=== PATIENT | female | born 1985 | race American Indian/Alaskan Native ===

== ENCOUNTER 2020-07-07 21:44 | Emergency (ER) | payer OTHER, MEDICAID, SELFPAY ==
[2020-07-07 21:52] VITALS: BP 140/92; PULSE 110; RESP 23; TEMP 36.8; O2SAT 100; BMI 19.5
[2020-07-07 22:13] LABS: Add Manual Diff / Slide Review NO; Basophils Absolute Auto 0 /uL (0-100); Basophils Percent Auto 0.6 % (0-2); Eosinophils Absolute Auto 300 /uL (0-450); Eosinophils Percent Auto 4.3 % (2-4); Hematocrit 36.7 % (36-46); Hemoglobin 12.5 g/dL (12.0-16.0); Lymphocytes Absolute Auto 1600 /uL (1100-4500); Lymphocytes Percent Auto 22.5 % (25-40); Mean Corpuscular Hemoglobin 28.7 PG (26-34); Mean Corpuscular Volume 84.6 fL (80-100); Monocytes Absolute Auto 500 /uL (0-900); Monocytes Percent Auto 6.2 % (3-14); Neutrophils Absolute Auto 4900 /uL (1500-7000); Neutrophils Percent Auto 66.4 % (50-75); Platelet Count 215 X10^3/uL (150-400); Red Blood Cell Count 4.34 X10^6/uL (4.0-5.2); Red Cell Distribution Width 14.5 % (11.6-14.8); White Blood Cell Count 7.3 X10^3/uL (4.5-11.0)
[2020-07-07 22:20] LABS: Alanine Aminotransferase 10 IU/L (<35); Albumin 4.6 g/dL (3.5-5.0); Albumin Globulin Ratio 1.3 (1.0-2.8); Alkaline Phosphatase 41 U/L (38-126); Aspartate Aminotransferase 24 IU/L (14-36); BUN Creatinine Ratio 13.8 (6-22); Bilirubin Total 0.4 mg/dL (0.2-1.3); Blood Urea Nitrogen 8 mg/dL (7-17); Calcium 9.1 mg/dL (8.4-10.2); Carbon Dioxide 30 mmol/L (22-32); Chloride 101 mmol/L (98-107); Estimated Glomerular Filt Rate > 60.0 mL/min (>60); Globulin 3.6 g/dL (1.7-4.1); Glucose 119 mg/dL (70-100); HEMOLYSIS < 15 (0-50); Sodium 136 mmol/L (137-145); Total Protein 8.2 g/dL (6.3-8.2)
--- NOTE | 2020-07-07 22:24 | ED_ITS ---
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 She denies any pain. She states she's been using a pad every 30 minutes all day. She feels fatigued, but has no significant dizziness or lightheadedness. She is currently , but has had no prentatal care thusfar. She has been bleeding, but denies the passage of any tissue. She denies runny nose, sore throat or cough nor exposure 20 persons known to have COVID-19 Related Data Previous Rx's Medication Instructions Recorded potassium chloride 20 meq PO BID 3 Days #6 tab 07/08/20 Allergies Allergy/AdvReac Type Severity Reaction Status Date / Time No Known Drug Allergies Allergy Verified 07/07/20 22:17 Review of Systems Constitutional Constitutional: Denies chills, Denies fatigue, Denies fever(s), Denies frequent falls, Denies lethargy and Denies weakness Eyes Eyes: Denies change in vision, Denies eye discharge, Denies irritation and Den ies loss of vision ENT Ears, Nose, Mouth, and Throat: Denies change in voice, Denies dizziness, Denies neck pain, Denies sore throat and Denies throat swelling Cardiovascular Cardiovascular: Denies chest pain, Denies irregular heart rhythm, Denies lightheadedness, Denies palpitations, Denies dyspnea, Denies dyspnea on exertion and Denies orthopnea Respiratory Respiratory: Denies cough, Denies dyspnea, Denies dyspnea on exertion and Denies wheezing Gastrointestinal Gastrointestinal: Denies abdominal pain, Denies change in bowel habits, Denies diarrhea, Denies nausea and Denies vomiting Genitourinary Genitourinary: Reports abnormal vaginal bleeding Musculoskeletal Musculoskeletal: Denies neck pain and Denies numbness Integumentary/Breasts Skin/Breast: Denies pruritus, Denies erythema, Denies rash and Denies wounds Neurologic Neurologic: Denies behavioral changes, Denies confusion, Denies dizziness, Denies frequent falls, Denies loss of vision, Denies numbness and Denies weakness Psychiatric Psychiatric: Denies anxiety, Denies behavioral changes, Denies confusion, Denies depression, Denies homicidal ideation and Denies suicidal ideation Endocrine Endocrine: Denies fatigue, Denies flushing and Denies palpitations Hematologic/Lymphatic Hematologic/Lymphatic: Denies easy bruising Allergic/Immunologic Allergic/Immunologic: Denies urticaria, Denies throat swelling and Denies wheezing Patient History Substance Use Type: does not use Exam Narrative Exam Narrative: GENERAL: [35] year old patient appears stated age. Well- nourished, well-developed patient, in mild distress. HEAD: Atraumatic. Normocephalic. EYES: Pupils equal round and reactive. Extraocular motions intact. ENT: Nose without bleeding, purulent drainage. NECK: Trachea midline. Non tender CARDIOVASCULAR: Regular rate and rhythm without murmurs, gallops, or rubs. RESPIRATORY: Clear to auscultation. Breath sounds equal bilaterally. No wheezes, rales, or rhonchi. GASTROINTESTINAL: Abdomen soft, non-tender, nondistended. PELVIC: Moderate dark bleeding via closed cervical os, no tissue noted. Volume of blood soaked with 3 Simpson swabs and refills visual field after 15 seconds EXTREMITIES: No edema or joint tenderness. BACK: Nontender without deformity or crepitance. No flank tenderness. NEURO: AOx3. SKIN: No rash or erythema of visible areas Initial Vital Signs Initial Vital Signs: Vital Signs Temperature 98.2 F 07/07/20 21:52 Pulse Rate 110 H 07/07/20 21:52 Respiratory Rate 23 07/07/20 21:52 Blood Pressure 140/92 H 07/07/20 21:52 Pulse Oximetry 100 07/07/20 21:52 Course Orders Ordered: ED Orders 07/07/20 22:00 ABO RH Type Stat Antibody Screen Stat Complete Blood Count AUTO DIFF Stat Comprehensive Metabolic Panel Stat HCG Quantitative /Beta subunit Stat 07/07/20 22:35 US pelvic complete Stat 07/07/20 23:26 Urinalysis and Microscopic Stat 07/07/20 23:51 COVID19 Stat 07/08/20 01:00 Hemoglobin and Hematocrit Stat Discontinued Medications Potassium Chloride 40 meq/ (Sodium Chloride) 520 mls @ 130 mls/hr IV NOW ONE Stop: 07/08/20 05:18 Last Infusion: 07/08/20 02:14 Dose: 0 mls/hr Documented by: JAQUELIN Cosigned by: JUANJOSE Admin: 07/08/20 01:44 Dose: 130 mls/hr Documented by: JAQUELIN Cosigned by: ELLE Potassium Chloride (Potassium Chloride 20 Meq/15 Ml Udc) 40 meq PO NOW ONE Stop: 07/08/20 01:59 Last Admin: 07/08/20 02:04 Dose: 40 meq Documented by: JAQUELIN Reevaluation(s) Reevaluation #2: repeat pelvic demonstrates significant decrease in amount of bleeding Consultations Consultation #1: call to Dr. Lawler. Will repeat H/H, obtain official US results and repeat quick pelvic and recontact regarding level of ongoing bleeding. Consultation #2: Call back with US rexsults, repeat H/H, and repeat exam. Given improvement and stable vitals she is appropriate for DC with close follow up and detailed return precautions. Vital Signs Vital signs: Vital Signs - 8 hr 07/07/20 21:52 07/07/20 23:13 07/07/20 23:30 Temperature 98.2 F Pulse Rate 110 H 84 71 Respiratory Rate 23 Blood Pressure 140/92 H Pulse Oximetry 100 100 100 07/07/20 23:52 07/08/20 00:00 07/08/20 00:01 Temperature Pulse Rate 70 71 71 Respiratory Rate 16 16 Blood Pressure 123/74 130/65 Pulse Oximetry 100 100 98 07/08/20 00:30 07/08/20 01:41 07/08/20 01:42 Temperature Pulse Rate 66 65 Respiratory Rate 16 Blood Pressure 114/72 123/78 Pulse Oximetry 100 98 100 07/08/20 02:00 07/08/20 02:11 Temperature Pulse Rate 70 72 Respiratory Rate 22 22 Blood Pressure 114/74 Pulse Oximetry 100 100 MDM - Female Genitourinary Lab Data Result diagrams: 07/08/20 01:00 07/07/20 22:00 Labs: Lab Results 07/07/20 07/07/20 07/07/20 Range/Units 22:00 22:00 22:00 WBC 7.3 (4.5-11.0) X10^3/uL RBC 4.34 (4.0-5.2) X10^6/uL Hgb 12.5 (12.0-16.0) g/dL Hct 36.7 (36-46) % MCV 84.6 (80-100) fL MCH 28.7 (26-34) PG MCHC 34.0 (30-36) % RDW 14.5 (11.6-14.8) % Plt Count 215 (150-400) X10^3/uL Neut % (Auto) 66.4 (50-75) % Lymph % (Auto) 22.5 L (25-40) % Titus % (Auto) 6.2 (3-14) % Eos % (Auto) 4.3 H (2-4) % Baso % (Auto) 0.6 (0-2) % Neut # (Auto) 4900 (4884-0458) /uL Lymph # (Auto) 1600 (8609-8511) /uL Titus # (Auto) 500 (0-900) /uL Eos # (Auto) 300 (0-450) /uL Baso # (Auto) 0 (0-100) /uL Sodium 136 L (137-145) mmol/L Potassium 3.0 L (3.4-5.1) mmol/L Chloride 101 (98-107) mmol/L Carbon Dioxide 30 (22-32) mmol/L BUN 8 (7-17) mg/dL Creatinine 0.58 (0.52-1.04) mg/dL Estimated GFR > 60.0 (>60) mL/min BUN/Creatinine Ratio 13.8 (6-22) Glucose 119 H (70-100) mg/dL Calcium 9.1 (8.4-10.2) mg/dL Total Bilirubin 0.4 (0.2-1.3) mg/dL AST 24 (14-36) IU/L ALT 10 (<35) IU/L Alkaline Phosphatase 41 (38-126) U/L Total Protein 8.2 (6.3-8.2) g/dL Albumin 4.6 (3.5-5.0) g/dL Globulin 3.6 (1.7-4.1) g/dL Albumin/Globulin Ratio 1.3 (1.0-2.8) HCG, Quant 8985.6 mIU/mL Urine Color Urine Appearance Urine pH (4.5-8.0) Ur Specific Lewis (1.000-1.035) Urine Protein (Negative) Urine Glucose (UA) (Negative) g/dL Urine Ketones (NEGATIVE) Urine Occult Blood (Negative) Urine Nitrate (Negative) Urine Bilirubin (NEGATIVE) Urine Urobilinogen (0.2) E.U./dL Ur Leukocyte Esterase (NEGATIVE) Urine RBC (0-5/HPF) Urine WBC (0-5/HPF) Ur Squamous Epith Cells (0-5/HPF) Urine Bacteria (None) Ur Culture Indicated? COVID-19 PCR (Negative) Blood Type A Positive Antibody Screen Negative 07/07/20 07/07/20 07/08/20 Range/Units 23:26 23:51 01:00 WBC (4.5-11.0) X10^3/uL RBC (4.0-5.2) X10^6/uL Hgb 11.7 L (12.0-16.0) g/dL Hct 34.4 L (36-46) % MCV (80-100) fL MCH (26-34) PG MCHC (30-36) % RDW (11.6-14.8) % Plt Count (150-400) X10^3/uL Neut % (Auto) (50-75) % Lymph % (Auto) (25-40) % Titus % (Auto) (3-14) % Eos % (Auto) (2-4) % Baso % (Auto) (0-2) % Neut # (Auto) (5541-8693) /uL Lymph # (Auto) (7407-4326) /uL Titus # (Auto) (0-900) /uL Eos # (Auto) (0-450) /uL Baso # (Auto) (0-100) /uL Sodium (137-145) mmol/L Potassium (3.4-5.1) mmol/L Chloride (98-107) mmol/L Carbon Dioxide (22-32) mmol/L BUN (7-17) mg/dL Creatinine (0.52-1.04) mg/dL Estimated GFR (>60) mL/min BUN/Creatinine Ratio (6-22) Glucose (70-100) mg/dL Calcium (8.4-10.2) mg/dL Total Bilirubin (0.2-1.3) mg/dL AST (14-36) IU/L ALT (<35) IU/L Alkaline Phosphatase (38-126) U/L Total Protein (6.3-8.2) g/dL Albumin (3.5-5.0) g/dL Globulin (1.7-4.1) g/dL Albumin/Globulin Ratio (1.0-2.8) HCG, Quant mIU/mL Urine Color [place] Urine Appearance Slightly cloudy Urine pH 7.5 (4.5-8.0) Ur Specific Lewis 1.010 (1.000-1.035) Urine Protein 1+ H (Negative) Urine Glucose (UA) Negative (Negative) g/dL Urine Ketones Negative (NEGATIVE) Urine Occult Blood 3+ H (Negative) Urine Nitrate Negative (Negative) Urine Bilirubin Negative (NEGATIVE) Urine Urobilinogen 0.2 (0.2) E.U./dL Ur Leukocyte Esterase Negative (NEGATIVE) Urine RBC >100/hpf H (0-5/HPF) Urine WBC 0-1/hpf (0-5/HPF) Ur Squamous Epith Cells 0-1 /hpf (0-5/HPF) Urine Bacteria None seen (None) Ur Culture Indicated? Cult not indicated COVID-19 PCR Negative (Negative) Blood Type Antibody Screen Imaging Data US - COLORIST PHOTOGRAPHY: Radiologist's Impression: 1. No intrauterine gestation identified. 2. Heterogeneous thickened endometrial stripe, possibly decidual reaction 3. Heterogeneous uterine echotexture suggestive of adenomyosis Discharge Plan Departure Patient Disposition: Home Clinical Impression: , missed, Acute hypokalemia Instructions: DI for Miscarriage, DI for Hypokalemia Activity Restrictions/Additional Instructions: *You have been diagnosed with [vaginal bleeding in , most likely a miss ed miscarriage, also low potassium] *What to do: *Take medications as directed: Prescription sent to [facility] per your request * please expect a call from Dr. Lawler office later today, for follow-up tomorrow *Return to ER if you should have any new, worsening or concerning symptoms, such as [vaginal bleeding through 1 pad per hour or greater for multiple hours, fever greater than 101 F, significant pain or other bothersome symptoms] Prescriptions: New potassium chloride 20 mEq tablet extended release 20 meq PO BID 3 Days Qty: 6 RF: 0 Referrals: Roxanna Lawler MD [Physician] -
--- NOTE | 2020-07-07 22:35 | DI.US.S_ITS ---
PROCEDURE: US PELVIC COMPLETE INDICATIONS: POSITIVE HCG, BLEEDING TECHNIQUE: Real-time scanning was performed of the pelvic organs, with image documentation. Additional endovaginal scanning was necessary due to incomplete visualization of the adnexal and endometrial structures by transabdominal scanning. COMPARISON: None. FINDINGS: Transabdominal scanning: Limited scanning through the kidneys shows no hydronephrosis. No pathologic free abdominal or pelvic fluid. Endovaginal scanning: Uterus: Uterus is normal in size at 10.5 x 5.2 x 6.3 cm. The endometrium measures 26.1 mm in combined thickness and is heterogeneous in echotexture. No intrauterine seen.. Ovaries: Right ovary measures 2.2 x 1.5 x 1.6 and the left 2.8 x 1.4 x 2.6. 10 mm paraovarian cyst. No adnexal masses or free fluid. IMPRESSION: 1. No intra-or extrauterine is identified. Differential considerations would include spontaneous , early intrauterine gestation as well as occult ectopic . Recommend clinical correlation with serial beta-hCGs and/or followup sonographic imaging if indicated. 2. Given the appearance of the endometrial complex which is thickened and heterogeneous, gestational trophoblastic disease cannot be excluded and clinical correlation with quantitative beta HCG is recommended. Findings and recommendations discussed with Dr. Mandy Khan on July 08, 2020 at 8:33 a.m.. Dictated by: Harjit WOODWARD Interpreted: Louise Romero MD on 07/08/2020 at 8:21 Approved by: Louise Romero MD, PhD on 07/08/2020 at 8:33
[2020-07-07 22:37] LABS: HCG Quantitative /Beta subunit 8985.6 mIU/mL
[2020-07-07 23:13] VITALS: PULSE 84; O2SAT 100
[2020-07-07 23:30] VITALS: PULSE 71; O2SAT 100
[2020-07-07 23:49] LABS: Bacteria Urine None Seen
[2020-07-07 23:52] VITALS: BP 123/74; PULSE 70; RESP 16; O2SAT 100
[2020-07-07 23:58] LABS: Appearance Urine UA Slightly Cloudy; Color Urine UA PINK
[2020-07-07 23:59] LABS: Bilirubin Urine UA Negative (NEGATIVE); Glucose Urine UA NEGATIVE (Negative); Ketones Urine UA NEGATIVE (NEGATIVE); Leukocyte Esterase Urine UA NEGATIVE (NEGATIVE); Nitrite Urine UA NEGATIVE (Negative); Occult Blood Urine UA 3+ (Negative); Protein Urine UA 1+ (Negative); Urobilinogen Urine UA 0.2 E.U./dL (0.2); pH Urine UA 7.5 (4.5-8.0)
[2020-07-08] VITALS (7 sets, daily range): BP systolic 114–130; BP diastolic 65–78; PULSE 65–72; RESP 16–22; O2SAT 98–100
[2020-07-08 00:05] LABS: Culture Indicated Urine Cult Not Indicated; RBC Urine >100/HPF (0-5/HPF); Squamous Epithelial Cell Urine 0-1 /HPF (0-5/HPF); WBC Urine 0-1/HPF (0-5/HPF)
[2020-07-08 00:11] LABS: COVID19 -Nasal RAPID Negative (Negative)
[2020-07-08 01:08] LABS: Hematocrit 34.4 % (36-46); Hemoglobin 11.7 g/dL (12.0-16.0)
[2020-07-08] MEDS: POTASSIUM CHLORIDE 40 MEQ in SODIUM CHLORIDE 0.9% 500 ML 130 ML IV (01:44)
[2020-07-08] MEDS: POTASSIUM CHLORIDE 20 MEQ/15 ML UDC 40 MEQ PO (02:04)
== END 2020-07-08 02:27 | disposition home or self-care (01) ==
PROVIDERS: Emergency Provider Emergency Medicine; Family Provider Family Medicine
DX: O02.1 Missed abortion (principal); E87.6 Hypokalemia; Z20.828 Contact with and (suspected) exposure to other viral communicable diseases
CPT/HCPCS: 36415; 76830; 76856; 80053; 81001; 84702; 85014; 85018; 85025; 86850; 86900; 86901; 87635; 96365; 99284; J3480